=== PATIENT | male | born 1985 | race Asian ===

== ENCOUNTER 2023-06-26 08:19 | Day surgery (SDC) | payer BC ==
[2023-06-25 12:15] VITALS: BMI 35.5
[2023-06-26] MEDS ORDERED: CYCLOPENTOLATE 2% ONE (08:52)
[2023-06-26] MEDS ORDERED: OPTH ONE (08:52)
[2023-06-26] MEDS ORDERED: PHENYLephrine 2.5% Ophth Soln 15 ml Bottle ONE (08:52)
[2023-06-26] MEDS ORDERED: Midazolam HCl 2 mg/2 ml Vial ONE (09:00)
[2023-06-26] MEDS ORDERED: fentaNYL 50 mcg/mL 1 mL Vial ONE (09:00)
[2023-06-26] MEDS ORDERED: Famotidine/PF 20 mg/2ml Vial ONE (09:00)
[2023-06-26] MEDS ORDERED: PROPOFOL 20 ML ONE (10:18)
[2023-06-26] MEDS ORDERED: Ondansetron PF 4 MG/2 ML Vial ONE ×2 (10:18→10:56)
[2023-06-26] MEDS ORDERED: PROPOFOL 200 MG/20 ML VIAL ONE (10:56)
[2023-06-26] MEDS ORDERED: Lidocaine 1% PF 5 ML VIAL ONE (10:56)
[2023-06-26] MEDS ORDERED: Dexamethasone 20 MG/5 ML VIAL ONE (10:56)
[2023-06-26] MEDS ORDERED: Bupivacaine 0.75% 10 ML VIAL ONE (10:56)
[2023-06-26] MEDS ORDERED: Lidocaine 4% PF 5 ML AMP ONE (10:56)
[2023-06-26] MEDS ORDERED: Acetaminophen 500 MG TAB ONE (15:17)
== END 2023-06-26 15:50 | disposition home or self-care (01) ==
LOC: SDC 08:19
PROVIDERS: ATTEND Ophthalmology Retina Specialist
PROC: 08NF3ZZ Release Left Retina, Percutaneous Approach (ICD-10-PCS; principal; 2023-06-26)
PROC: 08QE3ZZ Repair Right Retina, Percutaneous Approach (ICD-10-PCS; principal; 2023-06-26)
DX: H33.321 Round hole, right eye (principal); H33.22 Serous retinal detachment, left eye
CPT/HCPCS: C1776; J1100; J2250; J2405; J2704; J3010; J3490; S0028